=== PATIENT | male | born 1930 | race Caucasian/White ===

== ENCOUNTER 2016-07-16 04:54 | Emergency (ER) | payer MEDICARE, BC ==
[~2016-07-16] VITALS: Ht 172.7 cm; Wt 67.8 kg
[~2016-07-16 04:54] MED LIST: ATOR10TA PO; CARB1TAB21 PO; Ondansetron Hcl/Pf IVP; RASA0.5T PO; ZOLP12.542 PO
--- NOTE | 2016-07-16 05:00 | NUR ---
PT BIBPA FOR "PROGRESSIVELY BEEN WEAK AND GETTING WORSE; BEEN FALLING RECENTLY" PT AOX3 RR EVEN AND UNLABORED. NO SOB NOTED. NAD NOTED. NO NVD AT THIS TIME. PT NOT DIAPHORETIC. PT GOWNED AND PLACED ON MONITOR WAITING FOR MD PUENTE.
--- NOTE | 2016-07-16 05:10 | NUR ---
DR. HART AT BEDSIDE FOR EVAL.
[2016-07-16 05:33] LABS: CARBON DIOXIDE 31 mmol/L (21-32); CHLORIDE 103 mmol/L (98-107); CREATININE 1.2 mg/dL (0.6-1.3); GLUCOSE 104 mg/dL (74-106); POTASSIUM 4.3 mmol/L (3.5-5.1); SODIUM SERUM 139 mmol/L (136-145); UREA NITROGEN, BLOOD 19 mg/dL (7-18)
[2016-07-16 05:35] LABS: INR 0.98 (0.87-1.13); PROTHROMBIN TIME 10.5 SECS (9.5-12.7)
[2016-07-16 05:38] LABS: ALANINE AMINOTRANSFERASE 20 U/L (12-78); ALBUMIN 3.1 g/dL (3.4-5.0); ALKALINE PHOSPHATASE 88 U/L (46-116); ASPARTATE AMINOTRANSFERASE 28 U/L (15-37); BILIRUBIN,TOTAL 0.3 mg/dL (0.2-1.0); TOTAL PROTEIN, SERUM 7.6 g/dL (6.4-8.2)
[2016-07-16 05:44] LABS: TROPONIN I < 0.017 ng/mL (0.00-0.056)
[2016-07-16 06:23] LABS: BASOPHILS % (AUTO) 0.5 % (0.0-2.0); EOSINOPHILS # (AUTO) 0.2 /CMM (0.0-0.7); EOSINOPHILS % (AUTO) 2.6 % (0.0-6.0); HEMATOCRIT 36 % (39-51); HEMOGLOBIN 11.6 g/dL (13.5-17.5); LYMPHOCYTES # (AUTO) 1.6 /CMM (0.8-4.8); LYMPHOCYTES % (AUTO) 23.8 % (20.0-44.0); MEAN CORPUSCULAR HEMOGLOBIN 27 PG (26.0-33.0); MEAN CORPUSCULAR HGB CONC 32 g/dl (31.0-36.0); MEAN CORPUSCULAR VOLUME 83 fL (80-96); MONOCYTES # (AUTO) 0.3 /CMM (0.1-1.30); MONOCYTES % (AUTO) 5.1 % (2.0-12.0); NEUTROPHILS # (AUTO) 4.6 /CMM (1.8-8.9); PLATELET COUNT (AUTO) 295 /CMM (150-450); RDW COEFFICIENT OF VARIATION 24.9 (11.5-15.0); WHITE BLOOD COUNT (AUTO) 6.8 K/uL (4.3-11.0)
[2016-07-16] MEDS ORDERED: LIDOCAINE 2% JEL UROJET 10 ML MM ONE ×2 (06:37→07:00)
--- NOTE | 2016-07-16 06:49 | NUR ---
URINE COLLECTED. CALLED LAB FOR MAINTENANCE WELDER/
--- NOTE | 2016-07-16 07:43 | NUR ---
REPORT GIVEN TO SAMAN REYES FOR ANTONIO.
[2016-07-16 07:47] LABS: APPEARANCE,URINE CLEAR (CLEAR); BILIRUBIN,URINE NEGATIVE (NEGATIVE); BLOOD, URINE NEGATIVE Ery/uL (NEGATIVE); COLOR,URINE YELLOW (YELLOW); KETONES,URINE NEGATIVE (NEGATIVE); LEUKOCYTE ESTERASE ,URINE NEGATIVE (NEGATIVE); NITRITE, URINE NEGATIVE (NEGATIVE); PH,URINE 6.5 (5.0-8.0); PROTEIN,URINE NEGATIVE (NEGATIVE); UGLUCOSE NEGATIVE (NEGATIVE); UROBILINOGEN,URINE 0.2 EU/dL (0.2)
[2016-07-16 08:55] VITALS: BP 122/67
--- NOTE | 2016-07-16 08:55 | NUR ---
IV removed. Catheter intact and site benign. Pressure and 4x4 applied to site. No bleeding noted.Patient discharged to home in stable condition via taxi. Written and verbal after care instructions given. Patient verbalizes understanding of instruction.
== END 2016-07-16 08:56 | disposition home or self-care (01) ==
LOC: ER 04:55
DX: R53.1 Weakness (principal); G20 Parkinson's disease; I10 Essential (primary) hypertension; K21.9 Gastro-esophageal reflux disease without esophagitis; I50.9 Heart failure, unspecified; N40.0 Benign prostatic hyperplasia without lower urinary tract symptoms; D64.9 Anemia, unspecified; Z86.73 Personal history of transient ischemic attack (TIA), and cerebral infarction without residual deficits; Z98.890 Other specified postprocedural states
CPT/HCPCS: 36415; 80053; 81001; 84484; 85025; 85610; 93005; 99285; A4606; J3490; 81000-TC; Z7610

== ENCOUNTER 2016-07-27 03:13 | Emergency (ER) | payer MEDICARE, BC ==
[~2016-07-27] VITALS: Ht 177.8 cm; Wt 74.8 kg
--- NOTE | 2016-07-27 03:15 | NUR ---
TO BED 1 BIB PARAMEDICS C/O L EYE HEMATOMA S/P SLIP AND FALL, PT DENIES KO. PT AAOX4 NO ACUTE DISTRESS NOTED, RESP EVEN AND UNLABORED. PUPILS PERRL, PT ABLE TO MOVE ALL EXTREMITIES WELL WITH BILATERAL EQUAL TECHNOLOGY APPLICATIONS TEACHER. PT CAREGIVER AT BEDSIDE.
--- NOTE | 2016-07-27 03:23 | NUR ---
NASREEN JO AT BEDSIDE TO [facility].
--- NOTE | 2016-07-27 04:55 | NUR ---
[facility] CALLED FOR TRANSPORT. ETA 30 MIN
[2016-07-27 05:32] VITALS: BP 153/62
--- NOTE | 2016-07-27 05:32 | NUR ---
TRANSPORT AT BEDSIDE REPORT GIVEN TO EMT.
== END 2016-07-27 05:48 | disposition home or self-care (01) ==
LOC: ER 03:15
DX: S09.90XA Unspecified injury of head, initial encounter (principal); W01.0XXA Fall on same level from slipping, tripping and stumbling without subsequent striking against object, initial encounter; Y93.89 Activity, other specified; Y92.090 Kitchen in other non-institutional residence as the place of occurrence of the external cause; Y99.8 Other external cause status; S83.92XA Sprain of unspecified site of left knee, initial encounter; S83.91XA Sprain of unspecified site of right knee, initial encounter; S00.93XA Contusion of unspecified part of head, initial encounter; G20 Parkinson's disease; I10 Essential (primary) hypertension; K21.9 Gastro-esophageal reflux disease without esophagitis; N40.0 Benign prostatic hyperplasia without lower urinary tract symptoms; I50.9 Heart failure, unspecified; D64.9 Anemia, unspecified; Z98.890 Other specified postprocedural states
CPT/HCPCS: 70450; 72125; 73564 ×2; 99284; A4606; A6402; L0172; Z7610

== ENCOUNTER 2016-08-27 10:54 | Emergency (ER) | payer MEDICARE, OTHER ==
[~2016-08-27] VITALS: Ht 177.8 cm; Wt 70.8 kg
[2016-08-27 10:54] VITALS: BP 128/82
--- NOTE | 2016-08-27 10:54 | NUR ---
BIBRA 99 FROM HOME FOR NEAR SYNCOPE, QB=[id number] IN THE FIELD. NAD NOTED. PT NEURO INTACT. RR EVEN AND UNLABORED. PENDING MD PUENTE. PT PLACED IN GOWN AND MONITOR. CONTINUE TO MONITOR.
[2016-08-27 11:15] LABS: BASOPHILS # (AUTO) 0.1 /CMM (0.0-0.2); BASOPHILS % (AUTO) 1.3 % (0.0-2.0); EOSINOPHILS # (AUTO) 0.1 /CMM (0.0-0.7); EOSINOPHILS % (AUTO) 1.5 % (0.0-6.0); HEMATOCRIT 42 % (39-51); HEMOGLOBIN 13.5 g/dL (13.5-17.5); LYMPHOCYTES # (AUTO) 1.4 /CMM (0.8-4.8); MEAN CORPUSCULAR HEMOGLOBIN 26 PG (26.0-33.0); MEAN CORPUSCULAR HGB CONC 32 g/dl (31.0-36.0); MEAN CORPUSCULAR VOLUME 82 fL (80-96); MONOCYTES # (AUTO) 0.2 /CMM (0.1-1.30); MONOCYTES % (AUTO) 3.7 % (2.0-12.0); NEUTROPHILS # (AUTO) 4.3 /CMM (1.8-8.9); NEUTROPHILS % (AUTO) 71.5 % (43.0-81.0); PLATELET COUNT (AUTO) 236 /CMM (150-450); RDW COEFFICIENT OF VARIATION 18.1 (11.5-15.0); RED BLOOD CELL COUNT(AUTO) 5.14 MIL/uL (4.5-6.0); WHITE BLOOD COUNT (AUTO) 6.2 K/uL (4.3-11.0)
[2016-08-27 11:27] LABS: CALCIUM, SERUM 8.7 mg/dL (8.5-10.1); CARBON DIOXIDE 29 mmol/L (21-32); CHLORIDE 104 mmol/L (98-107); CREATININE 1.1 mg/dL (0.6-1.3); GLUCOSE 236 mg/dL (74-106); POTASSIUM 4.3 mmol/L (3.5-5.1); SODIUM SERUM 138 mmol/L (136-145); UREA NITROGEN, BLOOD 24 mg/dL (7-18)
[2016-08-27 11:30] LABS: INR 1.05 (0.87-1.13); PROTHROMBIN TIME 10.9 SECS (9.5-12.7)
[2016-08-27 11:33] LABS: ALANINE AMINOTRANSFERASE 53 U/L (12-78); ALBUMIN 3.2 g/dL (3.4-5.0); ALKALINE PHOSPHATASE 82 U/L (46-116); ASPARTATE AMINOTRANSFERASE 42 U/L (15-37); BILIRUBIN,DIRECT 0.1 mg/dL (0.0-0.2); BILIRUBIN,TOTAL 0.4 mg/dL (0.2-1.0); TOTAL PROTEIN, SERUM 7.6 g/dL (6.4-8.2)
[2016-08-27 11:35] LABS: TROPONIN I < 0.017 ng/mL (0.00-0.056)
--- NOTE | 2016-08-27 11:42 | NUR ---
ANAYA (CAREGIVER) CONTACT INFO:
--- NOTE | 2016-08-27 11:52 | NUR ---
PATIENT ASSIGNED TO TELE 312-2, WILL BE ADMITTED TO DR. FUENTES
[2016-08-27] MEDS ORDERED: IOHEXOL-350 100 ML VIAL IV ONE (12:02)
[2016-08-27] MEDS ORDERED: IV NS 0.9% 250 ML IV ONE (12:02)
[2016-08-27] MEDS ORDERED: CT SWABBABLE VALVE TRANS SET 1 EA INFUS.SET MC ONE (12:02)
[2016-08-27] MEDS ORDERED: IV NS 0.9% 500 ML BAG IV ONE (12:30)
--- NOTE | 2016-08-27 12:30 | NUR ---
report given to ian saenz for silvia
--- NOTE | 2016-08-27 12:50 | NUR ---
DR JACK ON THE PHONE WITH DR LINARES.
[2016-08-27] MEDS ORDERED: IV NS 0.9% 500 ML IV ONE (12:51)
[2016-08-27] MEDS ORDERED: ASPIRIN 325 MG TABLET ONE (12:53)
[2016-08-27] MEDS ORDERED: ASPIRIN 325 MG TABLET PO ONE (13:00)
--- NOTE | 2016-08-27 13:06 | NUR ---
transport will arrive approximately 1320
--- NOTE | 2016-08-27 13:18 | NUR ---
PATIENT ROOM #[id number] AT [facility] RN TO RN #
[2016-08-27] MEDS ORDERED: HYDR-3652 PO (13:27)
--- NOTE | 2016-08-27 13:53 | NUR ---
PT TRANSFERRED TO [facility] IN STABLE CONDITION. NAD NOTED. ALL FORMS GIVEN. REPORT GIVEN TO CCT RN AND GRADUATE [facility]NSHIP FOR [facility]. NO COMPLAINTS.
== END 2016-08-27 13:53 | disposition short-term general hospital (02) ==
LOC: ER 10:56
DX: I63.9 Cerebral infarction, unspecified (principal); E86.0 Dehydration; G20 Parkinson's disease; F03.90 Unspecified dementia, unspecified severity, without behavioral disturbance, psychotic disturbance, mood disturbance, and anxiety; I10 Essential (primary) hypertension; I50.9 Heart failure, unspecified; K21.9 Gastro-esophageal reflux disease without esophagitis; N40.0 Benign prostatic hyperplasia without lower urinary tract symptoms; D64.9 Anemia, unspecified; Z98.890 Other specified postprocedural states
CPT/HCPCS: 36415; 70496; 71010; 80048; 80076; 84484; 85025; 85730; 87081; 93005; 99291; A4606; J7040; J7050; Q9967; Z7610

== ENCOUNTER 2017-07-06 12:09 | Emergency (ER) | payer MEDICARE, BC ==
[~2017-07-06] VITALS: Ht 172.7 cm; Wt 74.8 kg
[~2017-07-06 12:09] MED LIST changes: -ATOR10TA PO; +HYDR-4303 PO; -Ondansetron Hcl/Pf IVP; -ZOLP12.542 PO
--- NOTE | 2017-07-06 12:15 | NUR ---
AAOX3, [id number] FROM HOME FOR DIARRHEA X 2 WKS, FEELING WEAK. RESP IS EVEN AND UNLABORED WITH NAD NOTED. SKIN IS WARM AND DRY. AWAITING MD FOR EVAL.
[2017-07-06] MEDS ORDERED: IV NS 0.9% 1,000 ML BAG IV ONE (12:30)
[2017-07-06 12:34] LABS: BASOPHILS % (AUTO) 0.3 % (0.0-2.0); EOSINOPHILS % (AUTO) 0.5 % (0.0-6.0); HEMATOCRIT 42 % (39-51); HEMOGLOBIN 14.5 g/dL (13.5-17.5); LYMPHOCYTES # (AUTO) 1.1 /CMM (0.8-4.8); LYMPHOCYTES % (AUTO) 8.7 % (20.0-44.0); MEAN CORPUSCULAR HGB CONC 34 g/dl (31.0-36.0); MEAN CORPUSCULAR VOLUME 89 fL (80-96); MONOCYTES # (AUTO) 0.6 /CMM (0.1-1.30); MONOCYTES % (AUTO) 4.6 % (2.0-12.0); NEUTROPHILS # (AUTO) 10.4 /CMM (1.8-8.9); NEUTROPHILS % (AUTO) 85.9 % (43.0-81.0); PLATELET COUNT (AUTO) 222 /CMM (150-450); RDW COEFFICIENT OF VARIATION 13.1 (11.5-15.0); RED BLOOD CELL COUNT(AUTO) 4.72 MIL/uL (4.5-6.0); WHITE BLOOD COUNT (AUTO) 12.2 K/uL (4.3-11.0)
[2017-07-06 12:41] LABS: CALCIUM, SERUM 8.8 mg/dL (8.5-10.1); CARBON DIOXIDE 28 mmol/L (21-32); CHLORIDE 106 mmol/L (98-107); CREATININE 1.2 mg/dL (0.6-1.3); GLUCOSE 118 mg/dL (74-106); SODIUM SERUM 142 mmol/L (136-145); UREA NITROGEN, BLOOD 21 mg/dL (7-18)
[2017-07-06 12:52] LABS: ALANINE AMINOTRANSFERASE 10 U/L (12-78); ALBUMIN 3.3 g/dL (3.4-5.0); ALKALINE PHOSPHATASE 84 U/L (46-116); ASPARTATE AMINOTRANSFERASE 22 U/L (15-37); BILIRUBIN,DIRECT 0.2 mg/dL (0.0-0.2); BILIRUBIN,TOTAL 0.5 mg/dL (0.2-1.0); TOTAL PROTEIN, SERUM 7.6 g/dL (6.4-8.2)
--- NOTE | 2017-07-06 14:43 | NUR ---
stool obtained sent to the lab
--- NOTE | 2017-07-06 15:00 | NUR ---
PO challenge tolerated. Dr Jiang made aware.
[2017-07-06 15:10] LABS: OCCULT BLOOD STOOL NEGATIVE (NEGATIVE)
--- NOTE | 2017-07-06 15:33 | NUR ---
IV removed. Catheter intact and site benign. Pressure and 4x4 applied to site. No bleeding noted.Patient discharged to home in stable condition. Written and verbal after care instructions given. Patient verbalizes understanding of instruction. Addendum: 07/06/17 at 1549 by SADIA Patient was discharged to caregiver in stable condition. Caregiver verbalized understanding of instruction.
[2017-07-06 15:35] VITALS: BP 116/68
== END 2017-07-06 15:40 | disposition home or self-care (01) ==
LOC: ER 12:13
DX: K52.9 Noninfective gastroenteritis and colitis, unspecified (principal); R53.1 Weakness; K21.9 Gastro-esophageal reflux disease without esophagitis; D64.9 Anemia, unspecified; F03.90 Unspecified dementia, unspecified severity, without behavioral disturbance, psychotic disturbance, mood disturbance, and anxiety; G20 Parkinson's disease; I11.0 Hypertensive heart disease with heart failure; I50.9 Heart failure, unspecified; N40.0 Benign prostatic hyperplasia without lower urinary tract symptoms
CPT/HCPCS: 36415; 80048-TC; 80076-TC; 82272-TC; 85025-TC; A4606; J7030; Z7610

== ENCOUNTER 2017-10-12 13:50 | Emergency (ER) | payer MEDICARE, BC ==
[~2017-10-12] VITALS: Ht 162.6 cm; Wt 79.4 kg
[2017-10-12] MEDS ORDERED: LIDOCAINE 1%-EPI 1:100,000 20 ML VIAL ONE (14:55)
[2017-10-12] MEDS ORDERED: LIDOCAINE 1%-EPI 1:100,000 50 ML VIAL IJ ONE (15:00)
--- NOTE | 2017-10-12 15:40 | NUR ---
AT FOR WOUND PROCEDURE.
--- NOTE | 2017-10-12 16:27 | NUR ---
Patient discharged to home in stable condition. Written and verbal after care instructions given. Patient verbalizes understanding of instruction.
[2017-10-12 16:31] VITALS: BP 114/62
== END 2017-10-12 16:32 | disposition home or self-care (01) ==
LOC: ER 13:55
DX: S01.81XA Laceration without foreign body of other part of head, initial encounter (principal); S00.33XA Contusion of nose, initial encounter; F03.90 Unspecified dementia, unspecified severity, without behavioral disturbance, psychotic disturbance, mood disturbance, and anxiety; I11.0 Hypertensive heart disease with heart failure; I50.9 Heart failure, unspecified; K21.9 Gastro-esophageal reflux disease without esophagitis; N40.0 Benign prostatic hyperplasia without lower urinary tract symptoms; D64.9 Anemia, unspecified; G20 Parkinson's disease; Z98.890 Other specified postprocedural states; W18.09XA Striking against other object with subsequent fall, initial encounter; Y93.89 Activity, other specified; Y92.098 Other place in other non-institutional residence as the place of occurrence of the external cause; Y99.8 Other external cause status
CPT/HCPCS: 70450-TC; A4606; A6402; A6403; J3490; Z7610